=== PATIENT | male | born 1985 | race American Indian/Alaskan Native ===

== ENCOUNTER 2018-11-17 05:37 | Emergency (ER) | payer SELFPAY ==
[2018-11-17] MEDS ORDERED: TORADOL IV STA (06:06)
[2018-11-17] MEDS ORDERED: ZOFRAN IV STA (06:06)
[2018-11-17] MEDS ORDERED: NACL 0.9% 1000 ML 1,000 ML IV ONE ×2 (06:06→08:20)
[2018-11-17 06:15] LABS: Bilirubin,Urine NEG (Negative); Blood,Urine SM (Negative); Color,Urine Yellow (Yellow); Urobilinogen,Urine < 2.0 mg/dL (<2.0)
[2018-11-17 06:43] LABS: Basophils % (Auto) 0.9 % (0.0-1.8); Eosinophils # (Auto) 0.1 K/mm3 (0.0-0.4); Eosinophils % (Auto) 1.4 % (0.0-4.3); Hemoglobin 15.6 gm/dl (11.8-15.2); Lymphocytes # (Auto) 2.2 K/mm3 (1.2-5.4); Lymphocytes % (Auto) 41.8 % (13.4-35.0); Mean Corpuscular HGB Conc 35 % (32-34); Mean Corpuscular Volume 91 fl (84-94); Monocytes # (Auto) 0.5 K/mm3 (0.0-0.8); Monocytes % (Auto) 9.5 % (0.0-7.3); Platelet Count 157 K/mm3 (140-440); Red Blood Count 4.95 M/mm3 (3.65-5.03); Red Cell Distribution Width 14.4 % (13.2-15.2)
[2018-11-17 07:03] LABS: Albumin 3.7 g/dL (3.9-5); BUN/Creatinine Ratio 10; Blood Urea Nitrogen 11 mg/dL (9-20); Calcium 8.8 mg/dL (8.4-10.2); Hemolysis Index 122
[2018-11-17] MEDS ORDERED: MORPHINE IV ONE (07:03)
[2018-11-17] MEDS ORDERED: MORPHINE ONE (07:03)
--- NOTE | 2018-11-17 07:09 | Cat Scan Report ---
CT abdomen pelvis wo con INDICATION: flank and right pelvic pain. TECHNIQUE: All CT scans at this location are performed using the following dose modulation technique: Automated exposure control. Helical slices were obtained through the abdomen and pelvis. No contrast is adminis tered. COMPARISON: CT scan dated 02/18/2018 FINDINGS: Abdomen: There is a calcified granuloma in the right lung base. Calcified granulomata are noted in th e liver and spleen. The pancreas, adrenal glands, and kidneys are unremarkable. The aorta is normal i n diameter. There is no obstruction, inflammation, or free air. There are no abnormal fluid collectio ns. The appendix is unremarkable. Pelvis: There is no obstruction or inflammation. The bowel is unremarkable. On review of bone windows, no acute osseous abnormalities are seen. IMPRESSION: 1. There is no obstruction, inflammation, or free air. There are no renal or ureteral calculi. There is no hydronephrosis. The appendix is unremarkable. Signer Name: Ronal Ram MD Signed: 11/17/2018 7:05 AM Workstation Name: [id number]
[2018-11-17 07:14] LABS: Alanine Aminotransferase 76 units/L (7-56)
[2018-11-17] MEDS ORDERED: DILAUDID IV ONE (07:53)
--- NOTE | 2018-11-17 08:36 | Emergency Department Report ---
ED Abdominal Pain HPI - General Chief Complaint: Abdominal Pain Stated Complaint: FLANK PAIN Time Seen by Provider: 11/17/18 07:46 Source: patient Mode of arrival: Ambulatory Limitations: No Limitations - History of Present Illness Initial Comments: This is a 33-year-old male nontoxic, well nourished in appearance, no acute signs of distress presents to the ED with c/o of acute or chronic intermittent left flank pain and left groin pain x2 weeks. Patient denies any testicular pain or swelling. Patient denies any penile ulcers or lesions. Patient denies any penile discharge. Patient denies any hematuria or urinary symptoms. Patient denies any nausea, vomiting, chest pain, shortness of breathe, fever, chills, headache, back pain, numbness, tingling, stiff neck. Patient denies any allergies. MD Complaint: flank pain, other (left groin pain) -: week(s) (2) Radiation: none Severity: mild Quality: cramping, aching Consistency: constant Improves With: nothing Worsens With: nothing Associated Symptoms: denies other symptoms. denies: nausea, vomiting, diarrhea, fever, chills, constipation, dysuria, hematemesis, hematochezia, melena, hematuria, anorexia, syncope - Related Data Previous Rx's Medication Instructions Recorded Last Taken Type Ketorolac [Toradol] 10 mg PO Q6H PRN #20 tablet 01/29/18 Unknown Rx Ondansetron (Nf) [Zofran TAB] 8 mg PO Q8HR PRN #20 tablet 01/29/18 Unknown Rx Ibuprofen [Ibu] 800 mg PO Q8H PRN #15 tablet 02/18/18 Unknown Rx Acetaminophen/Codeine [Tylenol 1 tab PO Q6H PRN #12 tab 11/17/18 Unknown Rx /Codeine # 3 tab] Allergies Allergy/AdvReac Type Severity Reaction Status Date / Time No Known Allergies Allergy Verified 01/29/18 02:14 ED Review of Systems ROS: Stated complaint: FLANK PAIN Other details as noted in HPI Constitutional: denies: chills, fever Eyes: denies: eye pain, eye discharge, vision change ENT: denies: ear pain, throat pain Respiratory: denies: cough, shortness of breath, wheezing Cardiovascular: denies: chest pain, palpitations Endocrine: no symptoms reported Gastrointestinal: denies: abdominal pain, nausea, diarrhea Genitourinary: denies: urgency, dysuria Musculoskeletal: denies: back pain, joint swelling, arthralgia Skin: denies: rash, lesions Neurological: denies: headache, weakness, paresthesias Psychiatric: denies: anxiety, depression Hematological/Lymphatic: denies: easy bleeding, easy bruising ED Past Medical Hx - Past Medical History Previous Medical History?: Yes Hx Sickle Cell Disease: Yes Hx Kidney Stones: Yes Additional medical history: Obesity - Surgical History Past Surgical History?: Yes Additional Surgical History: tonsil. port - Social History Smoking Status: Never Smoker Substance Use Type: None - Medications Home Medications: Home Medications Medication Instructions Recorded Confirmed Last Taken Type Ketorolac [Toradol] 10 mg PO Q6H PRN #20 tablet 01/29/18 Unknown Rx Ondansetron (Nf) [Zofran TAB] 8 mg PO Q8HR PRN #20 tablet 01/29/18 Unknown Rx Ibuprofen [Ibu] 800 mg PO Q8H PRN #15 tablet 02/18/18 Unknown Rx Acetaminophen/Codeine [Tylenol 1 tab PO Q6H PRN #12 tab 11/17/18 Unknown Rx /Codeine # 3 tab] ED Physical Exam - General Limitations: No Limitations General appearance: alert, in no apparent distress - Head Head exam: Present: atraumatic, normocephalic - Neck Neck exam: Present: normal inspection, full ROM. Absent: tenderness, meningism us, lymphadenopathy - Respiratory Respiratory exam: Present: normal lung sounds bilaterally. Absent: respiratory distress, wheezes, rales, rhonchi, stridor, chest wall tenderness, accessory muscle use, decreased breath sounds, prolonged expiratory - Cardiovascular Cardiovascular Exam: Present: regular rate, normal rhythm, normal heart sounds. Absent: bradycardia, tachycardia, irregular rhythm, systolic murmur, diastolic murmur, rubs, gallop - GI/Abdominal GI/Abdominal exam: Present: soft, normal bowel sounds. Absent: distended, tenderness, guarding, rebound, rigid, diminished bowel sounds - exam: Present: normal inspection. Absent: testicular tenderness, urethral discharge, scrotal swelling, vertical testicular lie, circumcision External exam: Present: normal external exam. Absent: erythema, swelling, lesions, lacerations, ecchymosis, bleeding - Extremities Exam Extremities exam: Present: normal inspection, full ROM, normal capillary refill. Absent: tenderness - Back Exam Back exam: Present: normal inspection, full ROM. Absent: tenderness, CVA tenderness (R), CVA tenderness (L), muscle spasm, paraspinal tenderness, vertebral tenderness, rash noted - Neurological Exam Neurological exam: Present: alert, oriented X3, normal gait - Psychiatric Psychiatric exam: Present: normal affect, normal mood - Skin Skin exam: Present: warm, dry, intact, normal color. Absent: rash ED Course Vital Signs 11/17/18 09:42 Temperature 98.6 F Pulse Rate 88 Respiratory 18 Rate Blood Pressure 143/92 [Left] O2 Sat by Pulse 98 Oximetry - Reevaluation(s) Reevaluation #1: 11/17/18 09:46 Patient is speaking in full sentences with no signs of distress noted. - Consultations Consultation #1: 11/17/18 09:48 Patient has been consulted with Dr. Addy V about patient history, physical exam, and labs/US testicular report and agrees to ED plan of care and discharge plan of care. ED Medical Decision Making - Lab Data Result diagrams: 11/17/18 06:04 11/17/18 06:04 - Medical Decision Making This is a 33-year-old male that presents with left hydrocele. Labs are unre markable. Patient is stable and was examined by me. Patient was educated on CT and ultrasound report with no questions noted by the patient. Urine is unremarkable. No signs or symptoms of epididymitis. Patient received medical treatment in ER which she stated symptoms are improving subsided. Patient was discharged with Tylenol with Codeine and was instructed Follow-up with a urologist in 3-5 days or if symptoms worsen and continue return to emergency room as soon as possible. At time of discharge, the patient does not seem toxic or ill in appearance. No acute signs of distress noted. Patient agrees to discharge treatment plan of care. No further questions noted by the patient. Critical care attestation.: If time is entered above; I have spent that time in minutes in the direct care of this critically ill patient, excluding procedure time. ED Disposition Clinical Impression: Left hydrocele, Left flank pain Disposition: DC-01 TO HOME OR SELFCARE Is pt being admited?: No Does the pt Need Aspirin: No Condition: Stable Instructions: Hydrocele (ED) Additional Instructions: Follow-up with a urologist in 3-5 days or if symptoms worsen and continue return to emergency room as soon as possible. Prescriptions: Acetaminophen/Codeine [Tylenol /Codeine # 3 tab] 1 tab PO Q6H PRN #12 tab PRN Reason: Pain , Severe (7-10) Referrals: CATHI GRANADOS MD [Primary Care Provider] - 3-5 Days PRIMARY CAREMD [Referring] - 3-5 Days TIARRA HOOKS MD [Staff Physician] - 3-5 Days [facility] [Outside] - 3-5 Days [facility] [Outside] - 3-5 Days JOZEF SAHU MD [Staff Physician] - 3-5 Days Forms: Work/School Release Form(ED)
--- NOTE | 2018-11-17 09:26 | Ultrasound Report ---
US testicular doppler comp INDICATION / CLINICAL INFORMATION: left groin pain. COMPARISON: None available. FINDINGS: Testicles are symmetric and normal in size without focal lesion. There is flow to both testicles. No epididymal lesions are seen bilaterally. There is a tiny left hydrocele. There is a round hyperechoic focus in the left in the scrotum which displayed movement within the hydrocele. There is no right hy drocele. No scrotal wall edema. No varicocele is seen. IMPRESSION: 1. No testicular or epididymal abnormalities. 2. Trace left hydrocele. Punctate"Scrotal tito" on the left. These are usually of no clinical signi ficance. These may be related to microtrauma. Signer Name: Adan Stoll MD Signed: 11/17/2018 9:22 AM Workstation Name: [id number]
[2018-11-17] MEDS ORDERED: TORADOL IV ONE (09:55)
[2018-11-17 10:15] VITALS: BP 140/90
== END 2018-11-17 10:15 | disposition home or self-care (01) ==
LOC: ED 05:37
DX: N43.3 Hydrocele, unspecified (principal); E66.9 Obesity, unspecified; Z87.442 Personal history of urinary calculi; Z98.890 Other specified postprocedural states; Z79.899 Other long term (current) drug therapy
CPT/HCPCS: 36415; 74176; 80053; 81001; 85025; 93975; 96374; 96375; 96376; 99284; J1170; J1885; J2270; J2405; J7030

== ENCOUNTER 2019-06-25 20:17 | Emergency (ER) | payer OTHER ==
[2019-06-25 20:26] VITALS: BP 136/91
[2019-06-25] MEDS ORDERED: MORPHINE 4 MG/1 ML INJ IM ONE (23:28)
[2019-06-25] MEDS ORDERED: dexAMETHasone 20 MG/5 ML VIAL IM ONE (23:28)
--- NOTE | 2019-06-26 00:09 | Emergency Department Report ---
ED Back Pain/Injury HPI - General Chief Complaint: Back Pain/Injury Stated Complaint: BACK PAIN AND RT WRIST PAIN Time Seen by Provider: 06/25/19 23:28 Source: patient Limitations: No Limitations - History of Present Illness Initial Comments: Patient is a 34-year-old male who presents emergency room with complaints of lower back pain and right wrist pain that began on 06/20/2019. He states that he had a fall on 06/20/2019 and was seen at [facility] at that time. He states that he was diagnosed with a wrist sprain and states that he had "spinal inflammation on an MRI of his spine" and states that he spent 3 days in the hospital. He states that he has tingling in the right fingers and right toes which he states he has had during these last 6 days. He denies any new fall or injury. He denies any bowel or bladder incontinence. He denies any fever, nausea, vomiting, diarrhea, any other symptoms. He states that he is taking Flexeril, [place], prednisone at home. He states he has an appointment on June 30 with a specialist. He is ambulatory without difficulty. He denies any other past medical history or allergies to medications. he states that the pain was not well controlled with his home medications which is what prompted him to present to the ER. - Related Data Previous Rx's Medication Instructions Recorded Last Taken Type Ketorolac [Toradol] 10 mg PO Q6H PRN #20 tablet 01/29/18 Unknown Rx Ondansetron (Nf) [Zofran TAB] 8 mg PO Q8HR PRN #20 tablet 01/29/18 Unknown Rx Ibuprofen [Ibu] 800 mg PO Q8H PRN #15 tablet 02/18/18 Unknown Rx Acetaminophen/Codeine [Tylenol 1 tab PO Q6H PRN #12 tab 11/17/18 Unknown Rx /Codeine # 3 tab] Cyclobenzaprine [Flexeril] 10 mg PO BID PRN #20 tablet 06/26/19 Unknown Rx Naproxen [EC-Naprosyn] 500 mg PO BID PRN #20 tablet. 06/26/19 Unknown Rx Allergies Allergy/AdvReac Type Severity Reaction Status Date / Time No Known Allergies Allergy Verified 06/25/19 20:23 ED Review of Systems ROS: Stated complaint: BACK PAIN AND RT WRIST PAIN Other details as noted in HPI Comment: All other systems reviewed and negative ED Past Medical Hx - Past Medical History Hx Sickle Cell Disease: Yes Hx Kidney Stones: Yes Additional medical history: Obesity - Surgical History Additional Surgical History: tonsil. port - Social History Smoking Status: Never Smoker Substance Use Type: None - Medications Home Medications: Home Medications Medication Instructions Recorded Confirmed Last Taken Type Ketorolac [Toradol] 10 mg PO Q6H PRN #20 tablet 01/29/18 Unknown Rx Ondansetron (Nf) [Zofran TAB] 8 mg PO Q8HR PRN #20 tablet 01/29/18 Unknown Rx Ibuprofen [Ibu] 800 mg PO Q8H PRN #15 tablet 02/18/18 Unknown Rx Acetaminophen/Codeine [Tylenol 1 tab PO Q6H PRN #12 tab 11/17/18 Unknown Rx /Codeine # 3 tab] Cyclobenzaprine [Flexeril] 10 mg PO BID PRN #20 tablet 06/26/19 Unknown Rx Naproxen [EC-Naprosyn] 500 mg PO BID PRN #20 tablet. 06/26/19 Unknown Rx ED Physical Exam - General Limitations: No Limitations General appearance: alert, in no apparent distress - Head Head exam: Present: atraumatic, normocephalic - Eye Eye exam: Present: normal appearance - ENT ENT exam: Present: mucous membranes moist - Neck Neck exam: Present: normal inspection, full ROM. Absent: tenderness - Respiratory Respiratory exam: Present: normal lung sounds bilaterally. Absent: respiratory distress, wheezes, rales, rhonchi, stridor, chest wall tenderness, accessory muscle use, decreased breath sounds, prolonged expiratory - Cardiovascular Cardiovascular Exam: Present: regular rate, normal rhythm, normal heart sounds. Absent: systolic murmur, diastolic murmur, rubs, gallop - Extremities Exam Extremities exam: Present: other (FROM of the right wrist, 2+ distal pulses in the right wrist, brisk cap refill, sensation intact) - Back Exam Back exam: Present: normal inspection, full ROM, paraspinal tenderness (left thoracic muscular paraspinal ttp, no midline C-spine, T-spine or L-spine ttp, no step offs, no deformities). Absent: vertebral tenderness - Neurological Exam Neurological exam: Present: alert, oriented X3, CN II-XII intact, normal gait, other (2+ distal pulses in the RLE, sensation intact in the BLE, muscle strength 5/5 in the BUE/BLE, no focal neuro deficit). Absent: motor sensory deficit - Psychiatric Psychiatric exam: Present: normal affect, normal mood - Skin Skin exam: Present: warm, dry, intact ED Course Vital Signs 06/25/19 20:24 Temperature 98.4 F Pulse Rate 89 Respiratory 18 Rate Blood Pressure 136/91 O2 Sat by Pulse 96 Oximetry ED Medical Decision Making - Medical Decision Making Patient is a 34-year-old male who presents emergency room with complaints of lower back pain and right wrist pain that began on 06/20/2019. He states that he had a fall on 06/20/2019 and was seen at [facility] at that time. He states that he was diagnosed with a wrist sprain and states that he had "spinal inflammation on an MRI of his spine" and states that he spent 3 days in the hospital. He states that he has tingling in the right fingers and right toes which he states he has had during these last 6 days and this is not new. He denies any new fall or injury. He denies any bowel or bladder incontinence or saddle numbness. He denies any fever, nausea, vomiting, diarrhea, any other symptoms. He states that he is taking Flexeril, [place], prednisone at home. He states he has an appointment on June 30 with a specialist. He is ambulatory without difficulty. He denies any other past medical history or allergies to medications. he states that the pain was not well controlled with his home medications which is what prompted him to present to the ER. Vitals are normal. On exam: FROM of the right wrist, 2+ distal pulses in the right wrist, brisk cap refill, sensation intact, left thoracic muscular paraspinal ttp, no midline C-spine, T-spine or L-spine ttp, no step offs, no deformities, 2+ distal pulses in the RLE, sensation intact in the BLE, muscle strength 5/5 in the BUE/BLE, no focal neuro deficit. Patient has no sensory deficits on exam, no midline tenderness, has had no new injury. pt given IM morphine and IM dexamethasone. He states his "symptoms completely resolved." 30 minutes after receiving the medication the patient was walking in the hallways of the emergency room asking for discharge paperwork to go home. Patient reports he does not have any medications left at home except for the steroids, I advised patient that we could write the muscle relaxer and an anti-inflammatory but we could not write a refill of the narcotics. advised pt Please take medication as prescribed as needed. Do not drive or operate heavy machinery while taking muscle relaxer. May use ice pack, heating pad, rest, Epson salt bath. Follow-up with your primary care doctor. Follow-up with your specialist. Return to the emergency room for any new or worsening symptoms. Critical care attestation.: If time is entered above; I have spent that time in minutes in the direct care of this critically ill patient, excluding procedure time. ED Disposition Clinical Impression: Right wrist pain Lower back pain Qualifiers: Chronicity: acute Back pain laterality: left Sciatica presence: without sciatica Qualified Code(s): M54.5 - Low back pain Disposition: TO HOME OR SELFCARE Is pt being admited?: No Does the pt Need Aspirin: No Condition: Stable Instructions: Acute Low Back Pain (ED), Arthralgia (ED) Additional Instructions: Please take medication as prescribed as needed. Do not drive or operate heavy machinery while taking muscle relaxer. May use ice pack, heating pad, rest, Epson salt bath. Follow-up with your primary care doctor. Follow-up with your specialist. Return to the emergency room for any new or worsening symptoms. Prescriptions: Naproxen [EC-Naprosyn] 500 mg PO BID PRN #20 tablet. PRN Reason: pain Cyclobenzaprine [Flexeril] 10 mg PO BID PRN #20 tablet PRN Reason: pain Referrals: SHREE COFFMAN MD [Staff Physician] - 3-5 Days TIARRA FELTON MD [Staff Physician] - 3-5 Days your, specialist [Other] - 3-5 Days Forms: Work/School Release Form(ED) Time of Disposition: 00:11 Print Language: SCOTTISH
== END 2019-06-26 00:19 | disposition home or self-care (01) ==
LOC: ED 20:17
DX: M54.5 Low back pain (principal); M25.531 Pain in right wrist; R20.2 Paresthesia of skin; D57.80 Other sickle-cell disorders without crisis; Z90.89 Acquired absence of other organs; Z79.899 Other long term (current) drug therapy
CPT/HCPCS: 96372; 99281; J1100; J2270